=== PATIENT | male | born 1990 | race Caucasian/White ===

== ENCOUNTER 2019-12-06 11:45 | Outpatient (CLI) | payer MEDICAID ==
--- NOTE | 2019-12-06 13:27 | ULT ---
ULTRASOUND SCROTUM TESTICLES DOPPLER DUPLEX: DATE: 12/06/2019. HISTORY: ICD-10: N50.811, right testicular pain in a 29-year-old male. TECHNIQUE: Garcia-scale evaluation of intrascrotal contents. Color flow Doppler and spectral waveform analysis of the testicles. FINDINGS: Right testicle: 3 x 4 x 2.5 cm. Left testicle: 3 x 4.5 x 2 cm. Right epididymal head: 1.4 x 0.7 cm. Left epididymal head: 1.5 x 0.8 cm. Testicular echogenicity: Normal. Testicular blood flow: Bilaterally symmetrical. Intratesticular mass: None. Hydrocele: Small bilaterally. Varicocele: None. Inferior to the right testicle, there is a soft tissue mass with hyperemia, consistent with an enlarg ed epididymal tail. IMPRESSION: Evidence for right epididymitis. TIA [place] POS: TPC
== END 2019-12-06 11:46 | disposition home or self-care (01) ==
LOC: SCSULT 11:45
PROVIDERS: ATTEND Nurse Practitioner Family
DX: N50.811 Right testicular pain (principal); N45.1 Epididymitis
CPT/HCPCS: 76870; 93976